=== PATIENT | female | born 1985 | race Caucasian/White ===

== ENCOUNTER 2019-10-06 07:01 | Day surgery (SDC) | payer MEDICAID ==
[2019-10-06] MEDS ORDERED: PROPOFOL INJ 200 MG/20 ML VIAL IV ONE (08:11)
--- NOTE | 2019-10-06 09:23 | Operative Report ---
Operative Report DATE OF SURGERY: 10/06/19 Operative Report: The risk, benefits and alternatives of the procedure including the risks of bleeding, perforation requiring surgery have been explained to the patient in detail and informed consent has been obtained. The patient is placed in a left, lateral decubital position. Timeout was called. Propofol medication is administered. Rectal examination is done which did not reveal any masses, tears or fissures. An Olympus videoscope was introduced into the patient's rectum and carefully advanced all the way to the cecum. The cecum was identified by the usual anatomical landmarks of the ileocecal valve as well as the appendiceal office. Photodocumentation is obtained. The scope was then sequentially pulled back via the various segments of the colon including the ascending colon, hepatic flexure, transverse colon, splenic flexure, descending colon and finally into the rectosigmoid portions of the colon. Retroflexion maneuvers performed. PREOPERATIVE DIAGNOSIS: Change in bowel habits, abdominal pain POSTOPERATIVE DIAGNOSIS: Right-sided colon inflammation/ulceration likely consistent with Crohn's disease., Areas noted to be fibrotic biopsies obtained, likely has granulomatous disease OPERATION: Colonoscopy with biopsy SURGEON: KARMA LYLES ANESTHESIA: LMAC TISSUE REMOVED OR ALTERED: As noted above. COMPLICATIONS: None. ESTIMATED BLOOD LOSS: None. INTRAOPERATIVE FINDINGS: As noted above. PROCEDURE: Patient tolerated the procedure well. No immediate postprocedure complications are noted. Patient is discharged in good condition. Discharge date 10/06/2019. Discharge diet: Regular. Discharge activity: Regular. 2 to 3-week follow-up to discuss findings. Patient is instructed call the office or proceed to the emergency room should there be any further problems or questions. Wait on the pathology.
[2019-10-06 10:10] VITALS: BP 108/78
== END 2019-10-06 09:53 | disposition home or self-care (01) ==
LOC: END 07:01
PROVIDERS: ATTEND Internal Medicine Gastroenterology
DX: K52.9 Noninfective gastroenteritis and colitis, unspecified (principal); K63.3 Ulcer of intestine; Z03.818 Encounter for observation for suspected exposure to other biological agents ruled out
CPT/HCPCS: 45380; 87635; 88305 ×2; 00811; J2704; C9803; 811